=== PATIENT | female | born 1960 | race Two or more races ===

== ENCOUNTER 2024-04-03 21:31 | Emergency (ER) | payer OTHER, SELFPAY ==
[~2024-04-03] VITALS: Ht 162.6 cm; Wt 70.1 kg
--- NOTE | 2024-04-03 22:13 | ED.PDOC ---
HPI Allergic reaction HPI Comments 63-year-old female came to emergency room due to allergic reaction. Patient has history of hypertension and takes lisinopril for it. For the past few hours, patient has been having swelling of the tongue, with shortness of breath and wheezing. Denies any generalized rashes or pruritus. Chief Complaint: Allergic Reaction Time Seen by MD: 22:13 Reviewed Notes: Nurses Notes Allergies: Coded Allergies: NO KNOWN ALLERGIES (Unverified , 04/03/24) Information Source: Patient Mode of Arrival: Ambulatory Severity: Moderate Rash: None SOB: Moderate Difficulty swallowing: Moderate Pruritus: None Timing: Hours Duration: Since onset Prehospital treatment: None Location: Tongue Exposed to: Medication Developed: Difficult Swallowing, Throat Swelliing, Wheeze Past Medical History PAST MEDICAL HISTORY: HTN Surgical History: Denies all surgeries MEDICAL SALES SPECIALIST History: Denies all MEDICAL SALES SPECIALIST Hx Family History Family History: Reviewed,noncontributory to illness Social History Smoker: Non-Smoker Alcohol: Denies ETOH Use Drugs: Denies Drug Use Lives In: Home Constitutional: denies: chills, diaphoresis, fatigue, fever, malaise, sweats, weakness, others EENTM: reports: others (Tongue swelling); denies: blurred vision, double vision, ear bleeding, ear discharge, ear drainage, ear pain, ear ringing, eye pain, eye redness, hearing loss, mouth pain, mouth swelling, nasal discharge, nose bleeding, nose congestion, nose pain, photophobia, tearing, throat pain, throat swelling, voice changes Respiratory: reports: SOB at rest, shortness of breath; denies: cough, hemoptysis, orthopnea, SOB with excertion, stridor, wheezing, others Cardiovascular: denies: chest pain, dizzy spells, diaphoresis, Dyspnea on exertion, edema, irregular heart beat, left arm pain, lightheadedness, palpitations, PND, syncope, others Gastrointestinal: denies: abdomen distended, abdominal pain, blood streaked bowels, constipated, diarrhea, dysphagia, difficulty swallowing, hematemesis, melena, nausea, poor appetite, poor fluid intake, rectal bleeding, rectal pain, vomiting, others Genitourinary: denies: abnormal vagina bleeding, burning, dyspareunia, dysuria, flank pain, frequency, hematuria, incontinence, pain, , vagina discharge, urgency, others Neurological: denies: dizziness, fainting, headache, left sided numbness, left sided weakness, numbness, paresthesia, pre-existing deficit, right sided numbness, right sided weakness, seizure, speech problems, tingling, tremors, weakness, others Musculoskeletal: denies: back pain, gout, joint pain, joint swelling, muscle pain, muscle stiffness, neck pain, others Integumetry: denies: bruises, change in color, change in hair/nails, dryness, laceration, lesions, lumps, rash, wounds, others Allergic/Immunocompromised: denies: Difficulty Healing, Frequent Infections, Hives, Itching, others Hematologic/Lymphatic: denies: anemia, blood clots, easy bleeding, easy bruising, swollen glands, others Endocrine: denies: excessive hunger, excessive sweating, excessive thirst, excessive urination, flushing, intolerance to cold, intolerance to heat, unexplained weight gain, unexplained weight loss, others Psychiatric: denies: anxiety, bipolar disorder, depression, hopeless, panic dis order, schizophrenia, sleepless, suicidal, others Physical Exam General Appearance: No Apparent Distress, Normal HEENT: Normal ENT Inspection, Pharynx Normal, TMs Normal, Other (Tongue swelling) Neck: Full Range of Motion, Non-Tender, Normal, Normal Inspection Respiratory: Chest Non-Tender, No Accessory Muscle Use, Respiratory Distress, Wheezing Cardiovascular: No Edema, No JVD, No Murmur, No Gallop, Normal Peripheral Pulses, Regular Rate/Rhythm Breast Exam: Deferred Gastrointestinal: No Organomegaly, Non Tender, No Pulsatile Mass, Normal Bowel Sounds, Soft Genitalia: Deferred Pelvic: Deferred Rectal: Deferred Extremities: No calf tenderness, Normal capillary refill, Normal inspection, Normal range of motion, Non-tender, No pedal edema Musculoskeletal : Apperance: Normal Neurologic: Alert, career placement specialist II-XII nml as Tested, No Motor Deficits, Normal Affect, Normal Mood, No Sensory Deficits Cerebellar Function: Normal Reflexes: Normal Skin: Dry, Normal Color, Warm Lymphatic: No Adenopathy Was a procedure done? Was a procedure done?: No Differential diagnosis (all) Differential Diagnosis: Anaphylaxis, Angioedema, Drug Reaction, Urticaria X-Ray, Labs, Meds, VS Vital Signs Date Time Temp Pulse Resp B/P (MAP) Pulse Ox O2 Delivery O2 Flow Rate FiO2 04/03/24 23:30 Room Air* 0 21 04/03/24 23:30 97.9 78 19 153/57 (89) 97 97.9 04/03/24 21:41 98.2 79 18 119/59 (79) 96 Current Medications Medications (Trade) Dose Ordered Sig/Chey Route Start Time Stop Time Status Last Admin Methylprednisolone Sodium Succinate (Solu Medrol) 125 mg ONCE ONCE IV 04/03/24 21:45 04/03/24 21:46 DC 04/03/24 23:39 Famotidine (Pepcid Injection) 20 mg ONCE ONCE IV 04/03/24 21:45 04/03/24 21:46 DC 04/03/24 23:39 Diphenhydramine HCl (Benadryl Injection) 50 mg ONCE ONCE IV 04/03/24 21:45 04/03/24 21:46 DC 04/03/24 23:39 Sodium Chloride 1,000 ml @ 1,000 mls/hr Q1H ONCE IV 04/03/24 21:45 04/03/24 22:44 DC 04/03/24 23:38 Tranexamic Acid 1000 mg/Sodium Chloride 110 ml @ 300 mls/hr ONCE ONCE IV 04/03/24 21:45 04/03/24 22:06 DC 04/04/24 00:34 Time of 1ST Reevaluation: 22:08 Reevaluation 1ST: Unchanged Patient Education/Counseling: Diagnosis, Treatment Family Education/Counseling: No Family Present Departure 1 Departure Time of Disposition: 00:58 (Patient with signs of angioedema since she has been taking lisinopril. We will admit patient for further workup and expert consultation) Impression: Primary Impression: Angioedema Qualified Codes: T78.3XXA - Angioneurotic edema, initial encounter Additional Impression: Tongue swelling Disposition: ADMITTED INPATIENT Admit to: Med Surg Condition: Serious Critical Care Note Critical Care Time?: Yes (35 min-critical care time only) Critical care comment: Anaphylaxis versus angioedema Authorized and Performed by: Jerrod Rose MD Total critical care time: Approximately 38 minutes Due to a high probability of clinically significant, life threatening deterioration, the patient required my highest level of preparedness to intervene emergently and I personally spent this critical care time directly and personally managing the patient. This critical care time included obtaining a history; examining the patient; pulse oximetry; ordering and review of studies; arranging urgent treatment with development of a management plan; evaluation of patient's response to treatment; frequent reassessment; and, discussions with other providers. This critical care time was performed to assess and manage the high probability of imminent, life-threatening deterioration that could result in multi-organ failure. It was exclusive of separately billable procedures and treating other patients and teaching time. Please see my other sections and the rest of the note for further information on patient assessment and treatment. Stability Stability form required: No Heart Score Heart Score: Heart Score Response (Comments) Value History N/A 0 EKG N/A 0 Age N/A 0 Risk Factors N/A 0 Troponin N/A 0 Total 0 I personally scribed for JERROD ROSE MD ([email or web address]) on 04/03/24 at 22:13. Electronically submitted by Shahram Benites ([email or web address]). JERROD ROSE MD Apr 03, 2024 22:13
[2024-04-03 23:30] VITALS: BP 153/57; PULSE 78; RESP 19; TEMP 97.9; O2SAT 97
[2024-04-03] MEDS: SODIUM CHLORIDE 0.9% 1,000 ML IV ONE (23:38)
[2024-04-03] MEDS: methylPREDNISolone SOD SUCC 125 MG/2 ML VL IV ONE (23:39)
[2024-04-03] MEDS: diphenhdrAMINE HCL 50 MG/1 ML VL IV ONE (23:39)
[2024-04-03] MEDS: FAMOTIDINE (10MG/ML) 2ML VL IV ONE (23:39)
[2024-04-04] MEDS: TRANEXAMIC ACID 1,000 MG in SODIUM CHL 0.9% 100 ML IV ONE (00:34)
[2024-04-04 01:21] LABS: Basophils # (auto) 0.1 10 ^3/uL (0-0.2); Basophils % (auto) 1.1 % (0.0-2.0); Eosinophils # (auto) 0.2 10 ^3/uL (0-0.8); Hematocrit 42.3 % (36.0-46.0); Hemoglobin 13.9 g/dL (12.2-16.2); Lymphocytes # (auto) 2.5 10 ^3/uL (0.4-5.4); Lymphocytes % (auto) 22.2 % (10.0-50.0); Mean Corpuscular Hemoglobin 27.5 pg (28.0-32.0); Mean Corpuscular Hgb Conc. 32.8 g/dL (32.0-36.0); Monocytes # (auto) 0.4 10 ^3/uL (0-1.3); Monocytes % (auto) 3.9 % (0.0-12.0); Neutrophils % (auto) 70.8 % (37.0-80.0); Platelet Count (auto) 330 10^3/uL (140-450); Red Blood Cells 5.04 10^6/uL (4.0-5.20); White Blood Cell 11.3 10^3/uL (4.4-10.8)
[2024-04-04 01:31] LABS: Chloride 104 mmol/L (98-107); Potassium 4.3 mmol/L (3.5-5.1)
[2024-04-04 01:32] LABS: Anion Gap 10 (5-15); Carbon Dioxide 21 mmol/L (20-31)
[2024-04-04 01:33] LABS: Calcium 10.2 mg/dL (8.7-10.4)
[2024-04-04 01:38] LABS: BUN/Creatinine Ratio 16.2 (10.0-20.0); Blood Urea Nitrogen 11 mg/dL (9-23)
[2024-04-04 01:43] LABS: Glucose 236 mg/dL (74-106); Sodium 135 mmol/L (136-145)
== END 2024-04-04 01:48 | disposition left against medical advice (07) ==
LOC: ER 21:31
DX: T78.3XXA Angioneurotic edema, initial encounter (principal); R22.0 Localized swelling, mass and lump, head; I10 Essential (primary) hypertension; Z79.899 Other long term (current) drug therapy; Y92.89 Other specified places as the place of occurrence of the external cause
CPT/HCPCS: 36415; 80048; 85025; 96361; 96365; 96375; 99284; J1200; J2919; J3490; J7030